=== PATIENT | female | born 1985 | race African-American/Black ===

== ENCOUNTER 2022-11-10 19:27 | Emergency (ER) | payer MEDICAID, OTHER ==
[~2022-11-10] VITALS: Ht 167.6 cm; Wt 97.0 kg
[2022-11-10 19:43] VITALS: BP 138/80
[2022-11-10] MEDS ORDERED: WATER FOR IRRIGATION,STERILE 500 ML IRRIG.SOLN IR ONE (23:00)
[2022-11-10] MEDS ORDERED: BACITRACIN ZINC OINT UDPKT TOP ONE (23:00)
[2022-11-10] MEDS ORDERED: NAPROXEN 250MG TABLET PO ONE (23:00)
[2022-11-11] MEDS ORDERED: NAPR-681 MT (00:05)
== END 2022-11-11 00:27 | disposition home or self-care (01) ==
LOC: ER 19:27
DX: S80.01XA Contusion of right knee, initial encounter (principal); S80.211A Abrasion, right knee, initial encounter; W01.0XXA Fall on same level from slipping, tripping and stumbling without subsequent striking against object, initial encounter; Y93.01 Activity, walking, marching and hiking; Y93.89 Activity, other specified; Y92.89 Other specified places as the place of occurrence of the external cause
CPT/HCPCS: 73560; 81025; 99283